=== PATIENT | male | born 2000 | race Caucasian/White ===

== ENCOUNTER 2019-02-06 00:45 | Emergency (ER) | payer MEDICAID, OTHER ==
[~2019-02-06] VITALS: Ht 185.4 cm; Wt 86.2 kg
[2019-02-06 01:07] LABS: BASOPHILS % (AUTO) 1 % (0-10); EOSINOPHILS % (AUTO) 1 % (0-10); HEMATOCRIT 44 % (40-54); HEMOGLOBIN 15.3 G/DL (13.3-17.7); LYMPHOCYTES # (AUTO) 2.1 X 10^3 (1.0-4.0); LYMPHOCYTES % (AUTO) 36 % (12-44); MEAN CORPUSCULAR HEMOGLOBIN 32 PG (25-34); MEAN CORPUSCULAR HGB CONC 35 G/DL (32-36); MEAN CORPUSCULAR VOLUME 91 FL (80-99); MEAN PLATELET VOLUME 10.6 FL (7.4-10.4); MONOCYTES # (AUTO) 0.6 X 10^3 (0.0-1.0); MONOCYTES % (AUTO) 9 % (0-12); NEUTROPHILS # (AUTO) 3.2 X 10^3 (1.8-7.8); NEUTROPHILS % (AUTO) 54 % (42-75); PLATELET COUNT 187 10^3/uL (130-400); RED CELL DISTRIBUTION WIDTH 12.7 % (10.0-14.5)
[2019-02-06 01:24] LABS: INR 1.1 (0.8-1.4); PROTHROMBIN TIME PATIENT 14.7 SEC (12.2-14.7)
[2019-02-06 01:31] LABS: ALANINE AMINOTRANSFERASE 6 U/L (0-55); ALBUMIN 5.1 GM/DL (3.2-4.5); ALKALINE PHOSPHATASE 101 U/L (40-136); BILIRUBIN,TOTAL 1.6 MG/DL (0.1-1.0); BUN/CREATININE RATIO 13; CALCIUM 10.7 MG/DL (8.5-10.1); CARBON DIOXIDE 16 MMOL/L (21-32); CHLORIDE 104 MMOL/L (98-107); CREATININE SERUM 1.02 MG/DL (0.60-1.30); GFR ESTIMATED > 60; GLUCOSE 91 MG/DL (70-105); POTASSIUM 3.2 MMOL/L (3.6-5.0); SALICYLATE < 5.0 MG/DL (5.0-20.0); SODIUM 139 MMOL/L (135-145); TOTAL PROTEIN 7.8 GM/DL (6.4-8.2)
[2019-02-06 01:32] LABS: ACETAMINOPHEN < 10 UG/ML (10-30)
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
[2019-02-06 02:25] LABS: BILIRUBIN,URINE NEGATIVE (NEGATIVE); CLARITY,URINE CLEAR; COLOR,URINE YELLOW; GLUCOSE, URINE (UA) NEGATIVE (NEGATIVE); KETONES,URINE NEGATIVE (NEGATIVE); LEUKOCYTE ESTERASE ,URINE NEGATIVE (NEGATIVE); NITRITE,URINE NEGATIVE (NEGATIVE); PH,URINE 6.5 (5-9); PROTEIN,URINE NEGATIVE (NEGATIVE); UROBILINOGEN,URINE NORMAL (NORMAL)
[2019-02-06 02:32] LABS: BACTERIA,URINE NEGATIVE /HPF; SQUAMOUS EPITHELIAL CELL,UR RARE /HPF
[2019-02-06 02:37] LABS: AMPHETAMINE SCREEN, URINE NEGATIVE (NEGATIVE); BARBITURATE SCREEN URINE NEGATIVE (NEGATIVE); BENZODIAZEPINES SCREEN URINE NEGATIVE (NEGATIVE); CANNABINOID SCREEN, URINE POSITIVE (NEGATIVE); COCAINE SCREEN URINE NEGATIVE (NEGATIVE); METHADONE STAT NEGATIVE (NEGATIVE); METHAMPHETAMINE SCREEN URINE S NEGATIVE (NEGATIVE); OPIATE SCREEN URINE NEGATIVE (NEGATIVE); OXYCODONE STAT NEGATIVE (NEGATIVE); PROPOXYPHENE STAT NEGATIVE (NEGATIVE); TRICYCLIC ANTIDEPRESSANTS SCRE NEGATIVE (NEGATIVE)
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
== END 2019-02-06 03:25 | disposition home or self-care (01) ==
LOC: ER 00:45
DX: S06.9X9A Unspecified intracranial injury with loss of consciousness of unspecified duration, initial encounter (principal); S51.811A Laceration without foreign body of right forearm, initial encounter; T14.8XXA Other injury of unspecified body region, initial encounter; S80.812A Abrasion, left lower leg, initial encounter; F10.929 Alcohol use, unspecified with intoxication, unspecified; F12.90 Cannabis use, unspecified, uncomplicated; F90.9 Attention-deficit hyperactivity disorder, unspecified type; X83.8XXA Intentional self-harm by other specified means, initial encounter; Y04.0XXA Assault by unarmed brawl or fight, initial encounter; Y90.6 Blood alcohol level of 120-199 mg/100 ml
CPT/HCPCS: 36415; 70450; 70486; 71045; 71260; 72125; 73630; 74177; 80053; 80306; 80320; 80329; 81000; 85025; 85610; 85730

== ENCOUNTER 2020-01-08 21:18 | Emergency (ER) | payer MEDICAID ==
[~2020-01-08] VITALS: Ht 180 cm; Wt 77.1 kg
[2020-01-08 21:24] VITALS: BP 136/82
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
== END 2020-01-08 21:44 | disposition home or self-care (01) ==
LOC: EDUNIT# 21:18 → ER 21:20
DX: S60.221A Contusion of right hand, initial encounter (principal); F17.210 Nicotine dependence, cigarettes, uncomplicated; W22.8XXA Striking against or struck by other objects, initial encounter
CPT/HCPCS: 73130

== ENCOUNTER → 2022-04-16 | Outpatient (CLI) | payer MEDICAID ==
--- NOTE | 2022-04-16 15:36 | Diagnostic Imaging Report ---
HISTORY: Fall, injury. Pain in the left elbow. COMPARISON: None. TECHNIQUE: Three views of the left elbow. FINDINGS: There is a nondisplaced intra-articular fracture of the left radial head involving the articular surface. There may be mild impaction anteriorly. There is a moderate left elbow joint effusion. Alignment otherwise appears normal. IMPRESSION: 1. Intra-articular, nondisplaced fracture of the left radial head which may be mildly impacted. 2. Moderate left elbow joint effusion. Dictated by: Dictated on workstation # [id number]
--- NOTE | 2022-04-16 15:37 | Diagnostic Imaging Report ---
HISTORY: Pain in the left wrist after a fall. TECHNIQUE: Three views of the left wrist. COMPARISON: None. FINDINGS: No acute fracture or dislocation is seen in the left wrist. Alignment appears normal. Joint spaces are preserved. The pronator fat pad is not displaced. IMPRESSION: No acute osseous abnormality is seen in the left wrist. Dictated by: Dictated on workstation # [id number]
== END ==
LOC: EDBD 14:46 → RAD 14:46
PROVIDERS: ATTEND Internal Medicine
DX: S60.219A Contusion of unspecified wrist, initial encounter (principal); X58.XXXA Exposure to other specified factors, initial encounter
CPT/HCPCS: 73080; 73110